=== PATIENT | female | born 1960 | race Caucasian/White ===

== ENCOUNTER 2017-04-02 08:02 | Emergency (ER) | payer BC ==
[2017-04-02] MEDS ORDERED: Ondansetron 4 MG Tab.DIS PO ONE (08:16)
[2017-04-02] MEDS ORDERED: HYDROmorphone 1 MG/ML Syringe IVPUSH PRN (08:16)
[2017-04-02] MEDS ORDERED: Sodium Chloride 0.9% 10 ML Syringe FLUSH PRN (08:20)
[2017-04-02] MEDS ORDERED: Sodium Chloride 0.9% 2.5 ML Syringe FLUSH PRN (08:20)
--- NOTE | 2017-04-02 08:25 | EDM.PDOC ---
ED HPI GENERAL MEDICAL PROBLEM - General Chief Complaint: Upper Extremity Injury/Pain Stated Complaint: BROKEN ARM Time Seen by Provider: 04/02/17 08:07 Source of Information: Reports: Patient History Limitations: Reports: No Limitations - History of Present Illness INITIAL COMMENTS - FREE TEXT/NARRATIVE: History of present illness: []Patient fell down a step falling on outstretched right arm this morning complaining of only right wrist pain. She denies any loss of consciousness headache neck pain or any other extremity pain. Review of systems: As per history of present illness and below otherwise all systems reviewed and negative. Past medical history: As per history of present illness and as reviewed below otherwise noncontributory. Surgical history: As per history of present illness and as reviewed below otherwise noncontributory. Social history: No reported history of drug or alcohol abuse. Family history: As per history of present illness and as reviewed below otherwise noncontributory. Physical exam: General: Well developed, well nourished in NAD HEENT: Atraumatic, normocephalic, pupils reactive, negative for conjunctival pallor or scleral icterus, mucous membranes moist, throat clear, neck supple, nontender, trachea midline. Lungs: Clear to auscultation, breath sounds equal bilaterally, chest nontender. Heart: S1S2, regular, negative for clicks, rubs, or JVD. Abdomen: Soft, nondistended, nontender. Negative for masses or hepatosplenomegaly. Negative for costovertebral tenderness. Pelvis: Stable nontender. Genitourinary: Deferred. Rectal: Deferred. Extremities: Obvious deformity of right wrist distal pulses palpable brisk capillary refill sensation intact with fingers negative for cords or calf pain. Neurovascular unremarkable. Neuro: Awake, alert, oriented. Cranial nerves II through XII unremarkable. Cerebellum unremarkable. Motor and sensory unremarkable throughout. Exam nonfocal. Diagnostics: []X-ray right wrist comminuted distal radial fracture with angulation and ulnar styloid fracture, elbow x-ray negative for fracture Therapeutics: []Conscious sedation with reduction of the right wrist and splinting Impression: [] distal ulnar radial fracture Plan: []Ice elevate oxycodone and ibuprofen for pain follow-up with Dr. Arenas next available date Definitive disposition and diagnosis as appropriate pending reevaluation and review of above. Right Wrist Pain Score (Numeric/FACES): 10 - Related Data Allergies Allergy/AdvReac Type Severity Reaction Status Date / Time No Known Allergies Allergy Verified 04/02/17 08:16 Home Meds: Home Meds Gabapentin 800 mg PO BEDTIME 11/09/14 [History] Apremilast [Otezla] 1 tab PO BID 03/28/15 [History] Citalopram Hydrobromide [Celexa] 1 tab PO DAILY 03/28/15 [History] Cyanocobalamin (Vitamin B12) [Vitamin B12] 1 tab PO DAILY 03/28/15 [History] Biotin 1 tab PO DAILY 10/16/15 [History] Celecoxib 2 tab PO DAILY 10/16/15 [History] Acetaminophen/HYDROcodone [[place] 325-5 MG] 1 - 2 tab PO Q4H PRN #60 tablet 10/18 [Rx] Methotrexate Sodium [Methotrexate] 6 ml PO WEEKLY 04/02/17 [History] Past Medical History HEENT History: Reports: Impaired Vision Other HEENT History: wears glasses Cardiovascular History: Reports: None Respiratory History: Reports: None Other Respiratory History: 15 yr history smoking, QUIT 20 yrs ago Gastrointestinal History: Reports: None Genitourinary History: Reports: Renal Calculus VASCULAR TECH History: Reports: None Musculoskeletal History: Reports: Arthritis Other Musculoskeletal History: psoriatic arthritis Neurological History: Reports: None Psychiatric History: Reports: None Endocrine/Metabolic History: Reports: Diabetes, Gestational Hematologic History: Reports: None Immunologic History: Reports: None Oncologic (Cancer) History: Reports: None Dermatologic History: Reports: Psoriasis Other Dermatologic History: Psoriasis - Past Surgical History GI Surgical History: Reports: Bariatric Procedure, Cholecystectomy, Colonoscopy Social & Family History - Tobacco Use Smoking Status *Q: Former Smoker Years of Tobacco use: 15 Second Hand Smoke Exposure: No - Recreational Drug Use Recreational Drug Use: No Drug Use in Last 12 Months: No Recreational Drug Type: Reports: Marijuana/Hashish Recreational Drug Use Frequency: Not Used In Over 1 Year Recreational Drug Last Use: 30 yrs ago Review of Systems - Review of Systems Review Of Systems: See Below (See history of present illness) ED EXAM, GENERAL - Physical Exam Exam: See Below (See history of present illness) Course - Vital Signs Last Recorded V/S: Last Vital Signs Temp 37 C 04/02/17 09:57 Pulse 62 04/02/17 09:57 Resp 16 04/02/17 09:57 BP 100/55 L 04/02/17 09:57 Pulse Ox 99 04/02/17 09:57 - Orders/Labs/Meds Orders: Active Orders 24 hr Category Date Time Status Elbow Min 3V Rt [CR] Stat Exams 04/02/17 09:45 Taken HYDROmorphone [Dilaudid] Med 04/02/17 08:16 Active 0.5 mg IVPUSH Q1H PRN Sodium Chloride 0.9% [Normal Saline] 1,000 ml Med 04/02/17 09:00 Ordered IV .Bolus Sodium Chloride 0.9% [Saline Flush] Med 04/02/17 08:20 Active 10 ml FLUSH ASDIRECTED PRN Sodium Chloride 0.9% [Saline Flush] Med 04/02/17 08:20 Active 2.5 ml FLUSH ASDIRECTED PRN Saline Lock Insert [OM.PC] Stat Oth 04/02/17 08:21 Ordered Medication Orders Hydromorphone HCl (Dilaudid) 0.5 mg IVPUSH Q1H PRN PRN Reason: Pain Last Admin: 04/02/17 08:58 Dose: 0.5 mg Sodium Chloride (Saline Flush) 10 ml FLUSH ASDIRECTED PRN PRN Reason: Keep Vein Open Last Admin: 04/02/17 09:03 Dose: 10 ml Sodium Chloride (Saline Flush) 2.5 ml FLUSH ASDIRECTED PRN PRN Reason: Keep Vein Open Last Admin: 04/02/17 09:03 Dose: 2.5 ml Meds: Medications Generic Name Dose Route Start Last Admin Trade Name Freq PRN Reason Stop Dose Admin Hydromorphone HCl 0.5 mg 04/02/17 08:16 04/02/17 08:58 Dilaudid IVPUSH 0.5 mg Q1H PRN Administration Pain Sodium Chloride 10 ml 04/02/17 08:20 04/02/17 09:03 Saline Flush FLUSH 10 ml ASDIRECTED PRN Administration Keep Vein Open Sodium Chloride 2.5 ml 04/02/17 08:20 04/02/17 09:03 Saline Flush FLUSH 2.5 ml ASDIRECTED PRN Administration Keep Vein Open Discontinued Medications Generic Name Dose Route Start Last Admin Trade Name Freq PRN Reason Stop Dose Admin Bupivacaine HCl Confirm 04/02/17 09:33 04/02/17 10:20 Sensorcaine-Mpf 0.5% Administered 04/02/17 09:34 Not Given Dose 10 ml .ROUTE .STK-MED ONE Bupivacaine HCl 10 ml 04/02/17 10:15 04/02/17 10:23 Sensorcaine-Mpf 0.25% INJECT 04/02/17 10:16 Not Given ONETIME ONE Bupivacaine HCl 10 ml 04/02/17 10:18 Sensorcaine-Mpf 0.5% INJECT 04/02/17 10:19 ONETIME ONE Fentanyl Confirm 04/02/17 09:22 Sublimaze Administered 04/02/17 09:23 Dose 100 mcg .ROUTE .STK-MED ONE Lidocaine HCl Confirm 04/02/17 09:22 Xylocaine-Mpf 1% Administered 04/02/17 09:23 Dose 5 ml .ROUTE .STK-MED ONE Lidocaine/Epinephrine Confirm 04/02/17 09:33 04/02/17 10:20 Xylocaine 1% With Epinephrine 1:100,000 Administered 04/02/17 09:34 Not Given Dose 20 ml .ROUTE .STK-MED ONE Lidocaine/Epinephrine 20 ml 04/02/17 10:19 Xylocaine 1% With Epinephrine 1:100,000 INJECT 04/02/17 10:20 ONETIME ONE Midazolam HCl Confirm 04/02/17 09:22 Versed 1 Mg/Ml Administered 04/02/17 09:23 Dose 2 mg .ROUTE .STK-MED ONE Ondansetron HCl 4 mg 04/02/17 08:16 04/02/17 09:00 Zofran Odt PO 04/02/17 08:17 4 mg ONETIME ONE Administration Ondansetron HCl Confirm 04/02/17 09:21 Zofran Administered 04/02/17 09:22 Dose 4 mg .ROUTE .STK-MED ONE Propofol Confirm 04/02/17 09:22 Diprivan 20 Ml Administered 04/02/17 09:23 Dose 200 mg .ROUTE .STK-MED ONE Departure - Departure Time of Disposition: 10:27 Disposition: Home, Self-Care 01 Condition: Good Clinical Impression: Closed fracture distal radius and ulna Qualifiers: Encounter type: initial encounter Laterality: right Qualified Code(s): S52.501A - Unspecified fracture of the lower end of right radius, initial encounter for closed fracture; S52.601A - Unspecified fracture of lower end of right ulna, initial encounter for closed fracture; S52.601A - Unspecified fracture of lower end of right ulna, initial encounter for closed fracture - Discharge Information Referrals: PCP,None [Primary Care Provider] - Forms: ED Department Discharge Additional Instructions: The following information is given to patients seen in the emergency department who are being discharged to home. This information is to outline your options for follow-up care. We provide all patients seen in our emergency department with a follow-up referral. The need for follow-up, as well as the timing and circumstances, are variable depending upon the specifics of your emergency department visit. If you don't have a primary care physician on staff, we will provide you with a referral. We always advise you to contact your personal physician following an emergency department visit to inform them of the circumstance of the visit and for follow-up with them and/or the need for any referrals to a consulting specialist. The emergency department will also refer you to a specialist when appropriate. This referral assures that you have the opportunity for follow-up care with a specialist. All of these measure are taken in an effort to provide you with optimal care, which includes your follow-up. Under all circumstances we always encourage you to contact your private physician who remains a resource for coordinating your care. When calling for follow-up care, please make the office aware that this follow-up is from your recent emergency room visit. If for any reason you are refused follow-up, please contact the [facility] Emergency Department at and asked to speak to the emergency department charge nurse. Ice elevate rest as much as possible, use oxycodone and ibuprofen for pain only as needed, follow up with more so next available opening. [facility] Special[facility] - [facility] Professional [address], [address] [place] [address] - My Orders Last 24 Hours: My Active Orders 04/02/17 08:16 HYDROmorphone [Dilaudid] 0.5 mg IVPUSH Q1H PRN 04/02/17 08:20 Sodium Chloride 0.9% [Saline Flush] 10 ml FLUSH ASDIRECTED PRN Sodium Chloride 0.9% [Saline Flush] 2.5 ml FLUSH ASDIRECTED PRN 04/02/17 08:21 Saline Lock Insert [OM.PC] Stat 04/02/17 09:00 Sodium Chloride 0.9% [Normal Saline] 1,000 ml IV .Bolus 04/02/17 09:45 Elbow Min 3V Rt [CR] Stat - Assessment/Plan Last 24 Hours: My Active Orders 04/02/17 08:16 HYDROmorphone [Dilaudid] 0.5 mg IVPUSH Q1H PRN 04/02/17 08:20 Sodium Chloride 0.9% [Saline Flush] 10 ml FLUSH ASDIRECTED PRN Sodium Chloride 0.9% [Saline Flush] 2.5 ml FLUSH ASDIRECTED PRN 04/02/17 08:21 Saline Lock Insert [OM.PC] Stat 04/02/17 09:00 Sodium Chloride 0.9% [Normal Saline] 1,000 ml IV .Bolus 04/02/17 09:45 Elbow Min 3V Rt [CR] Stat
--- NOTE | 2017-04-02 08:47 | CR ---
EXAMINATION: Right wrist HISTORY: Deformity COMPARISON: None TECHNIQUE: 3 views FINDINGS: There is a comminuted moderately angulated distal radius fracture identified. There is a sm all adjacent ulnar styloid fracture also noted. Mild degenerative changes noted at the first [facility] join t. Subcortical cystic change noted within the scaphoid. Bone mineralization appears mildly osteopenic . IMPRESSION: 1. [place] polar angulated comminuted distal radius fracture. 2. Small ulnar styloid fracture.
[2017-04-02] MEDS ORDERED: Sodium Chloride 0.9% 1,000 ML IV ONE (09:00)
[2017-04-02] MEDS ORDERED: Ondansetron 4 MG/2 ML SDV ONE (09:21)
[2017-04-02] MEDS ORDERED: fentaNYL 100 MCG/2 ML SDV ONE (09:22)
[2017-04-02] MEDS ORDERED: Midazolam 1 MG/ML 2 ML SDV ONE (09:22)
[2017-04-02] MEDS ORDERED: Propofol 200 MG/20 ML SDV ONE (09:22)
[2017-04-02] MEDS ORDERED: Bupivacaine 0.5% 10 ML SDV ONE (09:33)
[2017-04-02] MEDS ORDERED: Lidocaine 1% with EPINEPHrine 1:100,000 20 ML MDV ONE (09:33)
--- NOTE | 2017-04-02 09:52 | PCM.PREANE ---
Preanesthetic Assessment - Procedure Proposed Procedure: Closed reduction R wrist - Anesthesia/Transfusion/Family Hx Anesthesia History: Prior Anesthesia Without Reaction Other Type of Anesthesia Reaction Comment: Denies any known problem in past Transfusion History: No Prior Transfusion(s) - Review of Systems General: No Symptoms Pulmonary: No Symptoms Cardiovascular: No Symptoms Gastrointestinal: No Symptoms Neurological: No Symptoms Other: Reports: None - Physical Assessment NPO Status Date: 04/01/17 NPO Status Time: 20:00 (2 fluid sips 2 hrs ago) Pulse: 64 O2 Sat by Pulse Oximetry: 98 Respiratory Rate: 24 Vital Signs: Last Vital Signs Temp 36.3 C 04/02/17 08:11 Pulse 65 04/02/17 08:11 Resp 24 H 04/02/17 08:11 BP 115/65 04/02/17 08:11 Pulse Ox Height: 1.7 m Weight: 71.3 kg - Allergies Allergies/Adverse Reactions: Allergies Allergy/AdvReac Type Severity Reaction Status Date / Time No Known Allergies Allergy Verified 04/02/17 08:16 PreAnesthesia Questionnaire HEENT History: Reports: Impaired Vision Other HEENT History: wears glasses Cardiovascular History: Reports: None Respiratory History: Reports: None Other Respiratory History: 15 yr history smoking, QUIT 20 yrs ago Gastrointestinal History: Reports: None Genitourinary History: Reports: Renal Calculus LEASING MANAGER History: Reports: None Musculoskeletal History: Reports: Arthritis Other Musculoskeletal History: psoriatic arthritis Neurological History: Reports: None Psychiatric History: Reports: None Endocrine/Metabolic History: Reports: Diabetes, Gestational Hematologic History: Reports: None Immunologic History: Reports: None Oncologic (Cancer) History: Reports: None Dermatologic History: Reports: Psoriasis Other Dermatologic History: Psoriasis - Infectious Disease History Infectious Disease History: Reports: Chicken Pox - Past Surgical History GI Surgical History: Reports: Bariatric Procedure, Cholecystectomy, Colonoscopy - SUBSTANCE USE Smoking Status *Q: Former Smoker Other Tobacco Use Within Last Twelve Months: o Second Hand Smoke Exposure: No Recreational Drug Use History: No Recreational Drug Type: Reports: Marijuana/Hashish Recreational Drug Last Use: 30 yrs ago - HOME MEDS Home Medications: Home Meds Gabapentin 800 mg PO BEDTIME 11/09/14 [History] Apremilast [Otezla] 1 tab PO BID 03/28/15 [History] Citalopram Hydrobromide [Celexa] 1 tab PO DAILY 03/28/15 [History] Cyanocobalamin (Vitamin B12) [Vitamin B12] 1 tab PO DAILY 03/28/15 [History] Biotin 1 tab PO DAILY 10/16/15 [History] Celecoxib 2 tab PO DAILY 10/16/15 [History] Acetaminophen/HYDROcodone [[place] 325-5 MG] 1 - 2 tab PO Q4H PRN #60 tablet 10/18 [Rx] Methotrexate Sodium [Methotrexate] 6 ml PO WEEKLY 04/02/17 [History] - CURRENT (IN HOUSE) MEDS Current Meds: Current Medications Hydromorphone HCl (Dilaudid) 0.5 mg IVPUSH Q1H PRN PRN Reason: Pain Last Admin: 04/02/17 08:58 Dose: 0.5 mg Sodium Chloride (Saline Flush) 10 ml FLUSH ASDIRECTED PRN PRN Reason: Keep Vein Open Last Admin: 04/02/17 09:03 Dose: 10 ml Sodium Chloride (Saline Flush) 2.5 ml FLUSH ASDIRECTED PRN PRN Reason: Keep Vein Open Last Admin: 04/02/17 09:03 Dose: 2.5 ml Discontinued Medications Bupivacaine HCl (Sensorcaine-Mpf 0.5%) Confirm Administered Dose 10 ml .ROUTE .STK-MED ONE Stop: 04/02/17 09:34 Fentanyl (Sublimaze) Confirm Administered Dose 100 mcg .ROUTE .STK-MED ONE Stop: 04/02/17 09:23 Lidocaine HCl (Xylocaine-Mpf 1%) Confirm Administered Dose 5 ml .ROUTE .STK-MED ONE Stop: 04/02/17 09:23 Lidocaine/Epinephrine (Xylocaine 1% With Epinephrine 1:100,000) Confirm Administered Dose 20 ml .ROUTE .STK-MED ONE Stop: 04/02/17 09:34 Midazolam HCl (Versed 1 Mg/Ml) Confirm Administered Dose 2 mg .ROUTE .STK-MED ONE Stop: 04/02/17 09:23 Ondansetron HCl (Zofran Odt) 4 mg PO ONETIME ONE Stop: 04/02/17 08:17 Last Admin: 04/02/17 09:00 Dose: 4 mg Ondansetron HCl (Zofran) Confirm Administered Dose 4 mg .ROUTE .STK-MED ONE Stop: 04/02/17 09:22 Propofol (Diprivan 20 Ml) Confirm Administered Dose 200 mg .ROUTE .[facility] ONE Stop: 04/02/17 09:23
--- NOTE | 2017-04-02 09:57 | PCM.POSTAN ---
POST ANESTHESIA ASSESSMENT - MENTAL STATUS Mental Status: Alert, Oriented Free Text/Narrative:: Doing well, awake. Awaiting post film. Fx Block placed. - VITAL SIGNS Pulse Rate: 62 SaO2: 99 Resp Rate: 16 Blood Pressure: 100/55 Temperature: 37 C - RESPIRATORY Respiratory Status: Respiratory Rate WNL - CARDIOVASCULAR CV Status: Pulse Rate WNL - GASTROINTESTINAL GI Status: No Symptoms - PAIN Pain Score: 1 - POST OP HYDRATION Hydration Status: Adequate & Stable (Doing well. No problems post.)
--- NOTE | 2017-04-02 10:03 | PCM.SN ---
- Free Text/Narrative Note: Requested for sedation for closed reduction of R wrist Fx. Healthy patient who reports some reflux. NPO 6hrs solids, 2hrs fluids. Patient given 1/2 mg Dilaudid and 4 mg Zofran by ER. Pt. interviewed, ? answered, accepts sedation. O2 on, monitors on. Slow IV sedation with Fx block. Wrist reduced without issues. Patient awake and stable post procedure. No problems noted.
--- NOTE | 2017-04-02 10:12 | PCM48HPAN ---
Post Anesthesia Note - EVALUATION WITHIN 48HRS OF ANESTHETIC Vital Signs in Normal Range: Yes Patient Participated in Evaluation: Yes Respiratory Function Stable: Yes Airway Patent: Yes Cardiovascular Function Stable: Yes Hydration Status Stable: Yes Pain Control Satisfactory: Yes Nausea and Vomiting Control Satisfactory: Yes Mental Status Recovered: Yes - COMMENTS/OBSERVATIONS Free Text/Narrative:: Did well ready for discharge
[2017-04-02] MEDS ORDERED: Bupivacaine 0.25% 10 ML SDV INJECT ONE (10:15)
[2017-04-02] MEDS ORDERED: Bupivacaine 0.5% 10 ML SDV INJECT ONE (10:18)
[2017-04-02] MEDS ORDERED: Lidocaine 1% with EPINEPHrine 1:100,000 20 ML MDV INJECT ONE (10:19)
--- NOTE | 2017-04-02 10:20 | CR ---
EXAMINATION: Right wrist HISTORY: Pain COMPARISON: 04/02/2017 TECHNIQUE: 2 views FINDINGS/IMPRESSION: There is a successfully reduced comminuted distal radius fracture identified wit h a small adjacent ulnar styloid fracture. Position and alignment appears closer to anatomic. Cast ma terial obscures fine detail.
--- NOTE | 2017-04-02 10:31 | CR ---
EXAMINATION: Right elbow HISTORY: Post reduction COMPARISON: None TECHNIQUE: 3 views FINDINGS/IMPRESSION: There is no acute osseous abnormality, dislocation, or fracture. No soft tissue swelling or joint effusion. Joint spaces are grossly preserved.
[2017-04-02 11:05] VITALS: BP 117/67
== END 2017-04-02 11:00 | disposition home or self-care (01) ==
LOC: MW.ED 08:02
DX: S52.501A Unspecified fracture of the lower end of right radius, initial encounter for closed fracture (principal); S52.611A Displaced fracture of right ulna styloid process, initial encounter for closed fracture; Z79.899 Other long term (current) drug therapy; Z87.891 Personal history of nicotine dependence; W10.9XXA Fall (on) (from) unspecified stairs and steps, initial encounter
CPT/HCPCS: 73080; 73100; 73110; 96361; 96374; 99283; A9270; J1170; J2250; J2405; J3010; J7040; 01820; 25600; 99284; J2704

== ENCOUNTER 2017-04-06 08:59 | Day surgery (SDC) | payer BC ==
[~2017-04-06 08:59] MED LIST: Acetaminophen/oxyCODONE 325-5 MG Tab PO PRN; Lactated Ringers 1,000 ML IV SCH; ceFAZolin 1 GM in Premix Bag 1 BAG IV SCH
[2017-04-06] MEDS ORDERED: Midazolam 1 MG/ML 2 ML SDV ONE (10:44)
[2017-04-06] MEDS ORDERED: fentaNYL 250 MCG/5 ML SDV ONE ×2 (10:44→11:40)
[2017-04-06] MEDS ORDERED: Propofol 200 MG/20 ML SDV ONE (10:44)
[2017-04-06] MEDS ORDERED: Lidocaine 2% 5 ML SDV ONE (10:44)
[2017-04-06] MEDS ORDERED: Ondansetron 4 MG/2 ML SDV ONE (10:48)
[2017-04-06] MEDS ORDERED: Ketorolac 30 MG/ML SDV ONE (10:48)
--- NOTE | 2017-04-06 10:54 | PCM.PREANE ---
Preanesthetic Assessment - Procedure Proposed Procedure: ORIF right radial fracture - Anesthesia/Transfusion/Family Hx Anesthesia History: Prior Anesthesia Without Reaction Other Type of Anesthesia Reaction Comment: Denies any known problem in past Family History of Anesthesia Reaction: No Transfusion History: No Prior Transfusion(s) Intubation History: Unknown - Review of Systems General: No Symptoms Pulmonary: No Symptoms Cardiovascular: No Symptoms Gastrointestinal: No Symptoms Neurological: Pre-Existing Deficit (Right arm casted) Other: Reports: None - Physical Assessment NPO Status Date: 04/05/17 NPO Status Time: 21:00 O2 Sat by Pulse Oximetry: 97 Respiratory Rate: 16 Vital Signs: Last Vital Signs Temp 98.8 F 04/06/17 09:15 Pulse 60 04/06/17 09:15 Resp 16 04/06/17 09:15 BP 104/59 L 04/06/17 09:15 Pulse Ox 97 04/06/17 09:15 Height: 5 ft 7 in Weight: 150 lb ASA Class: 2 Mental Status: Alert & Oriented x3 Airway Class: Mallampati = 2 Dentition: Reports: Normal Dentition (irregular teeth. ), [place](s) (#8,9 are not super secure) Thyro-Mental Finger Breadths: 3 Mouth Opening Finger Breadths: 3 ROM/Head Extension: Full Lungs: Clear to Auscultation, Normal Respiratory Effort Cardiovascular: Regular Rate, Regular Rhythm, No Murmurs - Allergies Allergies/Adverse Reactions: Allergies Allergy/AdvReac Type Severity Reaction Status Date / Time No Known Allergies Allergy Verified 04/03/17 12:39 - Blood Blood Available: No - Anesthesia Plan Pre-Op Medication Ordered: None - Acknowledgements Anesthesia Type Planned: General Anesthesia (LMA) Pt an Appropriate Candidate for the Planned Anesthesia: Yes Alternatives and Risks of Anesthesia Discussed w Pt/Guardian: Yes Pt/Guardian Understands and Agrees with Anesthesia Plan: Yes PreAnesthesia Questionnaire HEENT History: Reports: Impaired Vision Other HEENT History: wears glasses, has 2 front permanent false teeth Cardiovascular History: Reports: None Respiratory History: Reports: None Other Respiratory History: 15 yr history smoking, QUIT 20 yrs ago Gastrointestinal History: Reports: GERD Genitourinary History: Reports: Renal Calculus Other Genitourinary History: passed all stones 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 Musculoskeletal History: Reports: Other (See Below) Other Musculoskeletal History: psoriatic arthritis Neurological History: Reports: None Psychiatric History: Reports: Depression Endocrine/Metabolic History: Reports: Diabetes, Gestational Hematologic History: Reports: None Immunologic History: Reports: None Oncologic (Cancer) History: Reports: None Dermatologic History: Reports: Psoriasis Other Dermatologic History: Psoriasis - Infectious Disease History Infectious Disease History: Reports: Chicken Pox - Past Surgical History HEENT Surgical History: Reports: Tonsillectomy GI Surgical History: Reports: Bariatric Procedure, Cholecystectomy Other GI Surgeries/Procedures: hx of Chu-en-Y Musculoskeletal Surgical History: Reports: Arthroscopic Knee - SUBSTANCE USE Smoking Status *Q: Former Smoker Tobacco Use Within Last Twelve Months: No Other Tobacco Use Within Last Twelve Months: o Second Hand Smoke Exposure: No Recreational Drug Use History: No Recreational Drug Type: Reports: Marijuana/Hashish Recreational Drug Last Use: 30 yrs ago - HOME MEDS Home Medications: Home Meds Gabapentin 800 mg PO BEDTIME 11/09/14 [History] Apremilast [Otezla] 30 mg PO BID 03/28/15 [History] Citalopram Hydrobromide [Celexa] 20 mg PO DAILY 03/28/15 [History] Cyanocobalamin (Vitamin B12) [Vitamin B12] 1 tab SL DAILY 03/28/15 [History] Biotin 10,000 mg PO DAILY 10/16/15 [History] Celecoxib 200 mg PO DAILY 10/16/15 [History] Acetaminophen 500 mg PO ASDIRECTED PRN 04/03/17 [History] Folic Acid 1 mg PO DAILY 04/03/17 [History] Methotrexate Sodium [Methotrexate] ASDIRECTED 04/03/17 [History] Naproxen Sodium [Aleve] 220 mg PO DAILY 04/03/17 [History] Omeprazole 40 mg PO DAILY 04/03/17 [History] traMADol [Ultram] 50 mg PO BID PRN 04/03/17 [History] - CURRENT (IN HOUSE) MEDS Current Meds: Current Medications Cefazolin Sodium/Dextrose 1 gm (/ Premix) 50 mls @ 100 mls/hr IV ONCALL SOPHIA Lactated Ringer's (Ringers, Lactated) 1,000 mls @ 100 mls/hr IV ASDIRECTED SOPHIA Oxycodone/Acetaminophen (P[place] 325-5 Mg) 1 - 2 tab PO Q4H PRN PRN Reason: Pain Discontinued Medications Fentanyl (Sublimaze) Confirm Administered Dose 250 mcg .ROUTE .STK-MED ONE Stop: 04/06/17 10:45 Cefazolin Sodium/Dextrose (Ancef) Confirm Administered Dose 50 mls @ as directed .ROUTE .STK-MED ONE Stop: 04/06/17 10:46 Lidocaine (Xylocaine-Mpf 2%) Confirm Administered Dose 10 ml .ROUTE .STK-MED ONE Stop: 04/06/17 10:45 Midazolam HCl (Versed 1 Mg/Ml) Confirm Administered Dose 2 mg .ROUTE .STK-MED ONE Stop: 04/06/17 10:45 Propofol (Diprivan 20 Ml) Confirm Administered Dose 400 mg .ROUTE .STK-MED ONE Stop: 04/06/17 10:45
[2017-04-06] MEDS ORDERED: HYDROmorphone 2 MG/ML Syringe IVPUSH ONE (12:05)
--- NOTE | 2017-04-06 13:06 | PCM.OPNOTE ---
- General Post-Op/Procedure Note Date of Surgery/Procedure: 04/06/17 Operative Procedure(s): ORIF right distal radius, extra-articular Post-Op Diagnosis: R distal radius fracture Anesthesia Technique: General ET Tube Primary Surgeon: Nini Arenas Cigar Packer And Sorter: Kimani Jordan in mLs: 5 Condition: Good Free Text/Narrative:: tt=33 min #[id number]
[2017-04-06] MEDS: fentaNYL 100 MCG/2 ML SDV IVPUSH PRN ×2 (13:07→13:12)
[2017-04-06 14:36] VITALS: BP 119/58
--- NOTE | 2017-04-06 15:38 | CR ---
EXAMINATION: Right hand and right wrist HISTORY: Surgery COMPARISON: 04/02/2017 TECHNIQUE: Total of 5 fluoroscopic images provided FINDINGS/IMPRESSION: Operative control films demonstrate screw and plate fixation of a distal radius fracture.
--- NOTE | 2017-04-06 19:17 | OR ---
SURGEON: Nini Arenas MD DATE OF PROCEDURE: 04/06/2017 PREOPERATIVE DIAGNOSIS: Right distal radius fracture, extra-articular, displaced. POSTOPERATIVE DIAGNOSIS: Right distal radius fracture, extra-articular, displaced. PROCEDURE: Open reduction and internal fixation of right distal radius fracture. AMBULANCE OFFICER: Kimani Jordan PA-C. ANESTHESIA: General. ESTIMATED BLOOD LOSS: 5 mL. TOURNIQUET TIME: 33 minutes. COMPLICATIONS: None. DVT PROPHYLAXIS: PAS boots to bilateral lower extremities. IMPLANTS USED: [place] narrow 3 hole distal radius VariAx plate with combination of 2.7 mm nonlocking cortical screws and 2.3 mm locking screws. BRIEF HISTORY: Margie is a 57-year-old female, who sustained a fall. X-ray showed a displaced extra-articular fracture of the right distal radius. Due to the position of the fracture, I did discuss the option of surgical and conservative treatment. She elected to proceed with surgical treatment. The risks and goals of the procedure were discussed with the patient and were documented preoperatively. She agreed to proceed. DESCRIPTION OF PROCEDURE: The patient was properly identified and brought to the operating room. She was transferred from the OR cart and placed on the operating table in supine position. General anesthesia was administered. After adequate anesthesia was obtained, a well-padded tourniquet was applied to the right upper extremity. The right upper extremity was then prepped in standard fashion using ChloraPrep solution. It was then sterilely draped. A time-out was performed to ensure correct site and procedure. Preoperative antibiotics were given. The surgical site had been marked preoperatively. An Esmarch was used to exsanguinate the right upper extremity and the tourniquet was inflated to 200 mmHg. An incision was made over the volar aspect of the wrist. Subcutaneous tissues were incised. The FCR tendon was identified. Its sheath was incised and it was pulled in a radial direction. The floor of the sheath was then incised. The FPL tendon was identified and was retracted medially. The pronator quadratus was identified. This was quite thin and had been torn from the position of the fracture. The pronator quadratus was elevated from the bone. The fracture was then identified. It was then opened with a [place] elevator and copiously irrigated with saline solution to remove the fracture hematoma. The [place] elevator was then used to elevate the distal portion of the fracture onto the radial shaft. The position was checked in the AP and lateral views and felt that the position was acceptable. A K-wire was placed into the radial styloid which was placed across the fracture to provide provisional fixation. Her distal radius was somewhat narrow and I elected to proceed with the narrow plate. This was placed into position. This was held in place with a K-wire distally. I did place a 2.7 nonlocking screw in the sliding hole centrally. A distal screw was then placed. I elected to use a 2.3 mm locking screw. Before the distal screw was tightened down, I did release the proximal screw and then tightened the distal expeller worker. This helped restore some of the volar angulation. The proximal screw was again tightened. The remainder of the screw holes were filled with 2.7 mm nonlocking screws proximally and 2.3 mm locking screws distally. Final C-arm images confirmed acceptable reduction of the fracture with good placement of the plate. The wound was then copiously irrigated with saline solution. The pronator quadratus was unable to be repaired due to its position. Tourniquet was deflated. Subcutaneous tissues were closed with 3-0 Vicryl and the skin was closed with a running 4-0 Monocryl suture. Steri-Strips and Benzoin were placed. Xeroform gauze was placed over the wound and a bulky dressing was applied. She was placed in a well-padded volar splint with the wrist in slight extension. She was awakened from her anesthetic and transferred back to the operating room cart. She was brought to recovery room in stable condition. All needle and sponge counts were correct. LIMA / JULIO /[id number]
== END 2017-04-06 14:45 | disposition home or self-care (01) ==
LOC: MW.SDS 08:59
PROVIDERS: ATTEND Orthopaedic Surgery
DX: S52.551A Other extraarticular fracture of lower end of right radius, initial encounter for closed fracture (principal); M17.11 Unilateral primary osteoarthritis, right knee; L40.50 Arthropathic psoriasis, unspecified; Z87.891 Personal history of nicotine dependence; Z85.41 Personal history of malignant neoplasm of cervix uteri; Z86.32 Personal history of gestational diabetes; Z79.1 Long term (current) use of non-steroidal anti-inflammatories (NSAID); Z79.899 Other long term (current) drug therapy; Z98.84 Bariatric surgery status; Z90.49 Acquired absence of other specified parts of digestive tract; Z90.89 Acquired absence of other organs; Z98.890 Other specified postprocedural states
CPT/HCPCS: 25607; 76000; A9270; J0690; J1885; J2250; J2405; J3010; 01810; C1713; C1776; J2704

== ENCOUNTER 2018-09-15 11:32 | Emergency (ER) | payer BC ==
--- NOTE | 2018-09-15 11:33 | EDM.PDOC ---
ED HPI GENERAL MEDICAL PROBLEM - General Stated Complaint: HEARTBURN Time Seen by Provider: 09/15/18 11:33 Source of Information: Reports: Patient History Limitations: Reports: No Limitations - History of Present Illness INITIAL COMMENTS - FREE TEXT/NARRATIVE: History of present illness: []Patient has had 2 days of continuous "indigestion" radiating up to her chest and through to her back and jaw. Patient started she is now having left arm pain and sweats. She did not have any change in her chest discomfort. Patient denies any dizziness, blurry vision, syncope. Review of systems: As per history of present illness and below otherwise all systems reviewed and negative. Past medical history: As per history of present illness and as reviewed below otherwise noncontributory. Surgical history: As per history of present illness and as reviewed below otherwise noncontributory. Social history: No reported history of drug or alcohol abuse. Family history: As per history of present illness and as reviewed below otherwise noncontributory. Physical exam: General: Well developed, well nourished in NAD HEENT: Atraumatic, normocephalic, pupils reactive, negative for conjunctival pallor or scleral icterus, mucous membranes moist, throat clear, neck supple, nontender, trachea midline. Lungs: Clear to auscultation, breath sounds equal bilaterally, chest nontender. Heart: S1S2, regular, negative for clicks, rubs, or JVD. Abdomen: NABS, Soft, nondistended, nontender. Negative for masses or hepatosplenomegaly. Negative for costovertebral tenderness. Pelvis: Stable nontender. Genitourinary: Deferred. Rectal: Deferred. Extremities: Atraumatic, negative for cords or calf pain. Neurovascular unremarkable. Neuro: Awake, alert, oriented. Cranial nerves II through XII unremarkable. Cerebellum unremarkable. Motor and sensory unremarkable throughout. Exam nonfocal. Skin:warm and dry Diagnostics: EKG, chest x-ray, CBC, chemistry, troponin, H. pylori Therapeutics: Nitroglycerin with complete relief of discomfort ED Course: Stable Impression: Continuous Chest pain greater than 48 hours Prescriptions: Nitroglycerin Plan: Use nitroglycerin and take a baby aspirin daily until further workup by Dr. Diamond for cardiac workup turned ER immediately if symptoms change, return or worsen. Definitive disposition and diagnosis as appropriate pending reevaluation and review of above. Chest Pain Score (Numeric/FACES): 7 - Related Data Allergies Allergy/AdvReac Type Severity Reaction Status Date / Time No Known Allergies Allergy Verified 09/15/18 11:45 Home Meds: Home Meds Gabapentin 800 mg PO BEDTIME 11/09/14 [History] Apremilast [Otezla] 30 mg PO BID 03/28/15 [History] Citalopram Hydrobromide [Celexa] 20 mg PO DAILY 03/28/15 [History] Cyanocobalamin (Vitamin B12) [Vitamin B12] 1 tab SL DAILY 03/28/15 [History] Biotin 10,000 mg PO DAILY 10/16/15 [History] Celecoxib 200 mg PO DAILY 10/16/15 [History] Folic Acid 1 mg PO DAILY 04/03/17 [History] Methotrexate Sodium [Methotrexate] 7 mg ASDIRECTED 04/03/17 [History] Naproxen Sodium [Aleve] 220 mg PO DAILY 04/03/17 [History] Omeprazole 40 mg PO DAILY 04/03/17 [History] Nitroglycerin [Nitrostat] 0.4 mg SL ASDIRECTED PRN #1 bottle 09/15/18 [Rx] Past Medical History HEENT History: Reports: Impaired Vision Other HEENT History: wears glasses, has 2 front permanent false teeth Cardiovascular History: Reports: None Respiratory History: Reports: None Other Respiratory History: 15 yr history smoking, QUIT 20 yrs ago Gastrointestinal History: Reports: GERD Genitourinary History: Reports: Renal Calculus Other Genitourinary History: passed all stones WAX MOLDER History: Reports: None Musculoskeletal History: Reports: Other (See Below) Other Musculoskeletal History: psoriatic arthritis Neurological History: Reports: None Psychiatric History: Reports: Depression Endocrine/Metabolic History: Reports: Diabetes, Gestational Hematologic History: Reports: None Immunologic History: Reports: None Oncologic (Cancer) History: Reports: None Dermatologic History: Reports: Psoriasis Other Dermatologic History: Psoriasis - Infectious Disease History Infectious Disease History: Reports: Chicken Pox - Past Surgical History Head Surgeries/Procedures: Reports: None HEENT Surgical History: Reports: Tonsillectomy GI Surgical History: Reports: Bariatric Procedure, Cholecystectomy Other GI Surgeries/Procedures: hx of Chu-en-Y Musculoskeletal Surgical History: Reports: Arthroscopic Knee Social & Family History - Family History Family Medical History: Noncontributory - Caffeine Use Caffeine Use: Reports: Coffee ED ROS GENERAL - Review of Systems Review Of Systems: ROS reveals no pertinent complaints other than HPI. ED EXAM, GI/ABD - Physical Exam Exam: See Below (See history of present illness) Course - Vital Signs Last Recorded V/S: Last Vital Signs Temp 97.3 F 09/15/18 11:43 Pulse 71 09/15/18 12:11 Resp 18 09/15/18 12:11 BP 116/74 09/15/18 12:11 Pulse Ox 98 09/15/18 12:11 - Orders/Labs/Meds Orders: Active Orders 24 hr Category Date Time Status Cardiac Monitoring [RC] . DIRECTED Care 09/15/18 11:49 Active EKG Documentation Completion [RC] STAT Care 09/15/18 11:49 Active Nitroglycerin [Nitrostat] Med 09/15/18 11:48 Active 0.4 mg SL Q5M PRN Medication Orders Nitroglycerin (Nitrostat) 0.4 mg SL Q5M PRN PRN Reason: Chest Pain Last Admin: 09/15/18 12:00 Dose: 0.4 mg Admin: 09/15/18 11:54 Dose: 0.4 mg Labs: Laboratory Tests 09/15/18 09/15/18 09/15/18 Range/Units 11:47 11:47 11:47 WBC 8.34 (4.0-11.0) K/uL RBC 4.68 (4.30-5.90) M/uL Hgb 14.5 (12.0-16.0) g/dL Hct 43.6 (36.0-46.0) % MCV 93.2 (80.0-98.0) fL MCH 31.0 (27.0-32.0) pg MCHC 33.3 (31.0-37.0) g/dL RDW Std Deviation 47.5 (28.0-62.0) fl RDW Coeff of Thien 14 (11.0-15.0) % Plt Count 292 (150-400) K/uL MPV 10.30 (7.40-12.00) fL Neut % (Auto) 67.6 (48.0-80.0) % Lymph % (Auto) 21.5 (16.0-40.0) % [place] % (Auto) 8.5 (0.0-15.0) % Eos % (Auto) 2.2 (0.0-7.0) % Baso % (Auto) 0.2 (0.0-1.5) % Neut # (Auto) 5.6 (1.4-5.7) K/uL Lymph # (Auto) 1.8 (0.6-2.4) K/uL [place] # (Auto) 0.7 (0.0-0.8) K/uL Eos # (Auto) 0.2 (0.0-0.7) K/uL Baso # (Auto) 0.0 (0.0-0.1) K/uL Nucleated RBC % 0.0 /100WBC Nucleated RBCs # 0 K/uL Sodium 143 (136-145) mmol/L Potassium 3.7 (3.5-5.1) mmol/L Chloride 106 (98-107) mmol/L Carbon Dioxide 27.3 (21.0-32.0) mmol/L BUN 14 (7.0-18.0) mg/dL Creatinine 0.7 (0.6-1.0) mg/dL Est Cr Clr Drug Dosing 85.19 mL/min Estimated GFR (MDRD) > 60.0 ml/min Glucose 100 (74-106) mg/dL Calcium 8.9 (8.5-10.1) mg/dL Total Bilirubin 0.4 (0.2-1.0) mg/dL AST 17 (15-37) IU/L ALT 30 (14-63) IU/L Alkaline Phosphatase 93 (46-116) U/L Troponin I (0.000-0.056) ng/mL Total Protein 7.4 (6.4-8.2) g/dL Albumin 3.9 (3.4-5.0) g/dL Globulin 3.5 (2.6-4.0) g/dL Albumin/Globulin Ratio 1.1 (0.9-1.6) Lipase 183 (73-393) U/L H. pylori IgG Antibody NEGATIVE (NEG) 09/15/18 Range/Units 11:47 WBC (4.0-11.0) K/uL RBC (4.30-5.90) M/uL Hgb (12.0-16.0) g/dL Hct (36.0-46.0) % MCV (80.0-98.0) fL MCH (27.0-32.0) pg MCHC (31.0-37.0) g/dL RDW Std Deviation (28.0-62.0) fl RDW Coeff of Thien (11.0-15.0) % Plt Count (150-400) K/uL MPV (7.40-12.00) fL Neut % (Auto) (48.0-80.0) % Lymph % (Auto) (16.0-40.0) % [place] % (Auto) (0.0-15.0) % Eos % (Auto) (0.0-7.0) % Baso % (Auto) (0.0-1.5) % Neut # (Auto) (1.4-5.7) K/uL Lymph # (Auto) (0.6-2.4) K/uL [place] # (Auto) (0.0-0.8) K/uL Eos # (Auto) (0.0-0.7) K/uL Baso # (Auto) (0.0-0.1) K/uL Nucleated RBC % /100WBC Nucleated RBCs # K/uL Sodium (136-145) mmol/L Potassium (3.5-5.1) mmol/L Chloride (98-107) mmol/L Carbon Dioxide (21.0-32.0) mmol/L BUN (7.0-18.0) mg/dL Creatinine (0.6-1.0) mg/dL Est Cr Clr Drug Dosing mL/min Estimated GFR (MDRD) ml/min Glucose (74-106) mg/dL Calcium (8.5-10.1) mg/dL Total Bilirubin (0.2-1.0) mg/dL AST (15-37) IU/L ALT (14-63) IU/L Alkaline Phosphatase (46-116) U/L Troponin I < 0.050 (0.000-0.056) ng/mL Total Protein (6.4-8.2) g/dL Albumin (3.4-5.0) g/dL Globulin (2.6-4.0) g/dL Albumin/Globulin Ratio (0.9-1.6) Lipase (73-393) U/L H. pylori IgG Antibody (NEG) Meds: Medications Generic Name Dose Route Start Last Admin Trade Name Freq PRN Reason Stop Dose Admin Nitroglycerin 0.4 mg 09/15/18 11:48 09/15/18 12:00 Nitrostat SL 0.4 mg Q5M PRN Administration Chest Pain Discontinued Medications Generic Name Dose Route Start Last Admin Trade Name Freq PRN Reason Stop Dose Admin Aspirin 324 mg 09/15/18 11:48 09/15/18 11:54 Aspirin PO 09/15/18 11:49 324 mg ONETIME ONE Administration Famotidine 20 mg 09/15/18 11:48 09/15/18 11:54 Pepcid IVPUSH 09/15/18 11:49 20 mg ONETIME ONE Administration Departure - Departure Time of Disposition: 12:49 Disposition: Home, Self-Care 01 Condition: Good Clinical Impression: Chest pain Qualifiers: Chest pain type: unspecified Qualified Code(s): R07.9 - Chest pain, unspecified - Discharge Information *PRESCRIPTION DRUG MONITORING PROGRAM REVIEWED*: No *COPY OF PRESCRIPTION DRUG MONITORING REPORT IN PATIENT AIDEN: No Prescriptions: Nitroglycerin [Nitrostat] 0.4 mg SL ASDIRECTED PRN #1 bottle PRN Reason: Chest Pain Referrals: Trey Rodriguez MD [Primary Care Provider] - Additional Instructions: The following information is given to patients seen in the emergency department who are being discharged to home. This information is to outline your options for follow-up care. We provide all patients seen in our emergency department with a follow-up referral. The need for follow-up, as well as the timing and circumstances, are variable depending upon the specifics of your emergency department visit. If you don't have a primary care physician on staff, we will provide you with a referral. We always advise you to contact your personal physician following an emergency department visit to inform them of the circumstance of the visit and for follow-up with them and/or the need for any referrals to a consulting specialist. The emergency department will also refer you to a specialist when appropriate. This referral assures that you have the opportunity for follow-up care with a specialist. All of these measure are taken in an effort to provide you with optimal care, which includes your follow-up. Under all circumstances we always encourage you to contact your private physician who remains a resource for coordinating your care. When calling for follow-up care, please make the office aware that this follow-up is from your recent emergency room visit. If for any reason you are refused follow-up, please contact the [facility] Emergency Department at and asked to speak to the emergency department charge nurse. Take meds as directed, follow up with your primary care physician, return to ER if symptoms worsen or change. [facility] [address] [place] [id number] - My Orders Last 24 Hours: My Active Orders 09/15/18 11:48 Nitroglycerin [Nitrostat] 0.4 mg SL Q5M PRN 09/15/18 11:49 Cardiac Monitoring [RC] . DIRECTED EKG Documentation Completion [RC] STAT - Assessment/Plan Last 24 Hours: My Active Orders 09/15/18 11:48 Nitroglycerin [Nitrostat] 0.4 mg SL Q5M PRN 09/15/18 11:49 Cardiac Monitoring [RC] . DIRECTED EKG Documentation Completion [RC] STAT
[2018-09-15] MEDS ORDERED: Famotidine 20 MG/2 ML SDV IVPUSH ONE (11:48)
[2018-09-15] MEDS ORDERED: Aspirin 81 MG Tab.Chew PO ONE (11:48)
[2018-09-15] MEDS: Nitroglycerin 0.4 MG Tab.SL SL PRN ×2 (11:54→12:00)
[2018-09-15 12:27] LABS: CHLORIDE,CL 106 mmol/L (98-107); SODIUM,NA 143 mmol/L (136-145)
--- NOTE | 2018-09-15 12:30 | CR ---
EXAMINATION: Portable chest radiograph. HISTORY: Shortness of breath. FINDINGS: The trachea is midline. The cardiomediastinal silhouette is within normal limits. No pulmonary infiltrates, effusions or pneumothorax. Osseous structures appear unremarkable. IMPRESSION: No acute cardiopulmonary process.
[2018-09-15 13:15] VITALS: BP 114/72
== END 2018-09-15 13:13 | disposition home or self-care (01) ==
LOC: MW.ED 11:32
DX: R07.9 Chest pain, unspecified (principal); Z79.899 Other long term (current) drug therapy
CPT/HCPCS: 36415; 71045; 80053; 83690; 84484; 85025; 86677; 93005; 96374; 99285; A9270; J3490

== ENCOUNTER 2024-12-20 08:22 | Emergency (ER) | payer BC ==
[2024-12-20] MEDS ORDERED: Sodium Chloride 0.9% 2.5 ML Syringe FLUSH PRN (08:34)
[2024-12-20] MEDS ORDERED: Sodium Chloride 0.9% 10 ML Syringe FLUSH PRN (08:34)
[2024-12-20 08:42] LABS: BASOPHILS ABSOLUTE AUTO 0.06 K/uL (0.00-0.20); BASOPHILS PERCENT AUTO 1.0 % (0.0-1.0); EOSINOPHILS ABSOLUTE AUTO 0.29 K/uL (0.00-0.45); EOSINOPHILS PERCENT AUTO 5.0 % (0.0-6.0); IMMATURE GRAN ABSOLUTE AUTO 0.02 K/uL (0.00-0.05); IMMATURE GRAN PERCENT AUTO 0.3 % (0.0-0.4); LYMPHOCYTES ABSOLUTE AUTO 1.83 K/uL (1.00-4.80); LYMPHOCYTES PERCENT AUTO 31.3 % (24.0-44.0); MEAN PLATELET VOLUME 11.2 fL (9.4-12.3); MONOCYTES ABSOLUTE AUTO 0.67 K/uL (0.00-0.80); MONOCYTES PERCENT AUTO 11.5 % (0.0-8.0); NEUTROPHILS ABSOLUTE AUTO 2.98 K/uL (1.80-7.70); NEUTROPHILS PERCENT AUTO 50.9 % (41.0-71.0); NRBC ABSOLUTE 0.00 K/uL (0.00-0.02); NRBC PERCENT 0.0 /100WBC (0.0-0.2); PLATELET COUNT,PLT 341 K/uL (150-400); RED BLOOD CELL COUNT 4.19 M/uL (4.10-5.30); WHITE BLOOD CELL COUNT,WBC 5.85 K/uL (3.9-11.3)
[2024-12-20 09:06] LABS: A/G RATIO 1.1 (0.9-1.6); ALANINE AMINOTRANSFERASE,ALT 31.0 IU/L (14-63); ASPARTATE AMNIOTRANSFERASE,AST 26.0 IU/L (15-37); BILIRUBIN TOTAL 0.5 mg/dL (0.2-1.0); BLOOD UREA NITROGEN,BUN 16.0 mg/dL (7.0-18.0); CARBON DIOXIDE,CO2 25.2 mmol/L (21.0-32.0); CHLORIDE,CL 105.0 mmol/L (98-107); CREATININE 1.0 mg/dL (0.6-1.0); EST CRCL DRUG DOSING (CG) 55.27 mL/min; GLUCOSE RANDOM 101.0 mg/dL (74-106); POTASSIUM,K 4.3 mmol/L (3.5-5.1); PROTEIN TOTAL,TP 7.2 g/dL (6.4-8.2); SODIUM,NA 140.0 mmol/L (136-145)
[2024-12-20 09:15] LABS: ESTIMATED GFR 63.0 mL/min (>60)
[2024-12-20] MEDS ORDERED: Iopamidol 755 MG/ML 500 ML Multipack Bottle IVPUSH STA (10:01)
[2024-12-20 11:20] LABS: APPEARANCE,URINE CLEAR; GLUCOSE,URINE NEGATIVE (NEGATIVE); OCCULT BLOOD,URINE NEGATIVE (NEGATIVE)
[2024-12-20 11:30] LABS: AMPHETAMINES SCREEN, URINE NEGATIVE (CUTOFF=500); BUPRENORPHINE SCREEN,URINE NEGATIVE (CUTOFF=10); METHADONE SCREEN, URINE NEGATIVE (CUTOFF=200); METHAMPHETAMINES SCREEN, URINE NEGATIVE (CUTOFF=500); OXYCODONE SCREEN,URINE NEGATIVE (CUT0FF=100); PCP SCREEN,URINE NEGATIVE (CUTOFF=25); THC SCREEN,URINE 20 NG/ML NEGATIVE (CUTOFF=50)
[2024-12-20 12:57] VITALS: BP 132/63; PULSE 55
== END 2024-12-20 12:57 | disposition home or self-care (01) ==
LOC: MW.ED 08:22
DX: R07.9 Chest pain, unspecified (principal); K21.9 Gastro-esophageal reflux disease without esophagitis; Z98.84 Bariatric surgery status; Z90.49 Acquired absence of other specified parts of digestive tract; Z79.899 Other long term (current) drug therapy
CPT/HCPCS: 36415; 71045; 71045-26; 71275; 71275-26; 80053; 80305; 81003; 83690; 83735; 84484; 85025; 85379; 93005; 93010; 99284; 99285

== ENCOUNTER 2025-02-21 17:40 | Emergency (ER) | payer BC ==
[2025-02-21] MEDS: Diphtheria,Pertussis(Acell),Tetanus Vaccine 0.5 ML Syringe IM ONE (19:39)
[2025-02-21] MEDS ORDERED: Rabies Immune Globulin/PF (HyperRAB) 300 UNIT/ML 1 ML SDV IM ONE (19:45)
[2025-02-21] MEDS: Rabies Vaccine (Avian) 2.5 Unit Inj Kit IM ONE (20:43)
[2025-02-21] MEDS: Rabies Immune Globulin/PF (HyperRAB) 300 UNIT/ML 5 ML SDV IM ONE (20:44)
[2025-02-21] MEDS: Rabies Immune Globulin/PF (HyperRAB) 300 UNIT/ML 1 ML SDV IM ONE (20:45)
[2025-02-21 22:02] VITALS: BP 127/64; PULSE 73
[2025-02-21] MEDS: Amoxicillin/Clavulanate K 875-125 MG Tab PO ONE (22:21)
== END 2025-02-21 22:23 | disposition home or self-care (01) ==
LOC: MW.ED 17:40
DX: S31.815A Open bite of right buttock, initial encounter (principal); K21.9 Gastro-esophageal reflux disease without esophagitis; Z98.84 Bariatric surgery status; Z90.49 Acquired absence of other specified parts of digestive tract; Z79.899 Other long term (current) drug therapy; Z23 Encounter for immunization; W54.0XXA Bitten by dog, initial encounter
CPT/HCPCS: 90375; 90471; 90675; 90715; 96372; 99283; A9270